=== PATIENT | female | born 1930 | race Hispanic/Latino ===

== ENCOUNTER 2017-07-01 10:34 | Outpatient (CLI) | payer MEDICARE, OTHER ==
--- NOTE | 2017-07-01 12:09 | RAD ---
TWO VIEWS LUMBAR SPINE: Technique: Lateral, flexion and extension views of the lumbar spine obtained. FINDINGS: Atherosclerotic calcification of the abdominal aorta is seen. There is disc space height loss at L2-3 and minimally at L3-4 and L4-5. Disc space irregularity is se en in the inferior endplate of L4 and superior endplate of L5 as well as the inferior endplate of L5. Anterior osteophytes seen involving the L2, L3, L4, and L5 levels. Atherosclerotic calcification of the abdominal aorta is seen. No evidence of jeet or retrolisthesis seen on flexion or extension views. IMPRESSION: Changes of spondylosis. No evidence of jeet or retrolisthesis seen. No evidence of significant abno rmality seen otherwise. POS: [facility]
== END 2017-07-01 10:35 | disposition home or self-care (01) ==
LOC: RAD 10:34
PROVIDERS: ATTEND Nurse Practitioner Family
DX: M43.17 Spondylolisthesis, lumbosacral region (principal); M54.16 Radiculopathy, lumbar region
CPT/HCPCS: 72100

== ENCOUNTER 2017-08-29 09:03 | Outpatient (CLI) | payer MEDICARE, OTHER ==
--- NOTE | 2017-08-29 13:34 | EKG ---
Test Reason : Blood Pressure : / mmHG Vent. Rate : 068 BPM Atrial Rate : 068 BPM P-R Int : 164 ms QRS Dur : 086 ms QT Int : 386 ms P-R-T Axes : 075 004 014 degrees QTc Int : 410 ms Normal sinus rhythm Inferior infarct , age undetermined cannot be excluded Abnormal ECG Confirmed by ASHLEY ALATORRE ([id number]) on 08/29/2017 1:34:27 PM Referred By: [facility]AO Confirmed By:ASHLEY ALATORRE
== END 2017-08-29 09:04 | disposition home or self-care (01) ==
LOC: LABBT 09:03
PROVIDERS: ATTEND Neurological Surgery
DX: Z01.810 Encounter for preprocedural cardiovascular examination (principal); M54.16 Radiculopathy, lumbar region
CPT/HCPCS: 93005; 93010

== ENCOUNTER 2017-09-03 05:58 | Day surgery (SDC) | payer MEDICARE, OTHER ==
[2017-08-29 09:51] VITALS: BMI 25.2
[2017-09-03] MEDS ORDERED: Bupivacaine HCl 0.5%/Epinephrine 1:200,000/PF 30 ml Vial ONE (07:41)
[2017-09-03] MEDS ORDERED: Thrombin 5000 UNITS/5 ML VIAL ONE (07:41)
[2017-09-03] MEDS ORDERED: Fentanyl 100 MCG/2 ML VIAL ONE ×2 (07:45→10:14)
[2017-09-03 08:05] LABS: Hemoglobin 13.8 g/dL (12.0-16.0); Mean Corpuscular HGB CONC 33.7 g/dL (32.0-36.0); Mean Corpuscular Hemoglobin 32.1 pg (27.0-31.0); Mean Corpuscular Volume 95.3 fL (78.0-98.0); Mean Platelet Volume 7.3 fL (7.4-10.4); Platelet Count 246 thou/uL (130-400); Red Blood Cell (RBC) Count 4.31 mill/uL (4.20-5.40); White Blood Cell (WBC) Count 7.6 thou/uL (4.8-10.8)
[2017-09-03 08:23] LABS: Anion Gap 11 mmol/L (10-20); BUN (Urea Nitrogen) 19 mg/dL (9.8-20.1); Calc. Creatinine Clearance 52 mL/min (70-130); Calcium 9.7 mg/dL (7.8-10.44); Carbon Dioxide 27 mmol/L (23-31); Chloride 104 mmol/L (98-107); Estimated GFR-MDRD 72; Glucose 114 mg/dL (83-110); Potassium 4.3 mmol/L (3.5-5.1); Sodium 138 mmol/L (136-145)
[2017-09-03] MEDS ORDERED: CEFAZOLIN/Water 2 GM/20 ML SYRINGE ONE ×2 (08:23→14:27)
[2017-09-03] MEDS ORDERED: PROPOFOL 200 MG/20 ML VIAL ONE (10:21)
[2017-09-03] MEDS ORDERED: Lidocaine 1% PF 5 ML VIAL ONE (10:21)
[2017-09-03] MEDS ORDERED: Ondansetron HCl/PF 4 MG/2 ML Vial ONE (10:21)
[2017-09-03] MEDS ORDERED: Glycopyrrolate 0.2 MG/ML 5 ML SYRINGE ONE (10:21)
[2017-09-03] MEDS ORDERED: ePHEDrine/0.9% NaCl/PF SYRINGE 50 mg/10 ml ONE (10:21)
[2017-09-03] MEDS ORDERED: PHENYLEPHRINE-NS 100 MCG/ML 10 ML SYRINGE ONE (10:21)
[2017-09-03] MEDS ORDERED: Promethazine HCl 25 MG/ML VIAL ONE (12:05)
[2017-09-03] MEDS ORDERED: Acetaminophen/Codeine 30-300mg Tablet ONE (13:25)
--- NOTE | 2017-09-10 11:28 | OP ---
DATE OF PROCEDURE: 09/10/2017 SURGEON: Jimbo Burroughs M.D. [employer] SPECIALIST: Luis Enrique Mallory PA-C. INDICATION: Pain. DIAGNOSIS: Lumbar radiculopathy. PROCEDURES: Right L4-L5 hemilaminectomy, medial facetectomy, decompression. ANESTHESIA: General. TECHNIQUE: The patient was brought into the operating room and placed under general anesthesia. She was flipped from a supine or prone position on the operating room table. A linear incision was plan jose over the L4-L5 segment. After prepping and draping and after an appropriate operative pause, the incision was created. Soft tissues were swept away from midline on the right. A self-retaining ret ractor was placed. High-speed cutting drill bit as well as 2, 3 and 4-mm Kerrison was used to perfor m a laminectomy along the inferior aspect of L4 and the superior aspect of L5 until the lateral reces ses were decompressed by removing the lamina as well as the medial aspect of the facet joint. The ex iting L4 and descending L5 nerve roots were identified and found to be free from compression. The wo und was then irrigated. Hemostasis was maintained throughout. The wound was then closed in anatomic layers and a pressure dressing was applied. There were no known procedural complications.
== END 2017-09-03 15:38 | disposition home or self-care (01) ==
LOC: SDC 05:58
PROVIDERS: ATTEND Neurological Surgery
PROC: 01NB0ZZ Release Lumbar Nerve, Open Approach (ICD-10-PCS; principal; 2017-09-03)
DX: M54.16 Radiculopathy, lumbar region (principal); E78.00 Pure hypercholesterolemia, unspecified; I10 Essential (primary) hypertension; F41.9 Anxiety disorder, unspecified; M19.90 Unspecified osteoarthritis, unspecified site; Z79.2 Long term (current) use of antibiotics; Z79.82 Long term (current) use of aspirin; Z79.899 Other long term (current) drug therapy; Z88.2 Allergy status to sulfonamides; Z88.8 Allergy status to other drugs, medicaments and biological substances
CPT/HCPCS: 36415; 76001; 80048; 85027; 96374; 96375; 96376; J0670; J2001; J2405; J2550; J2704; J3010

== ENCOUNTER 2018-01-20 03:46 | Emergency (ER) | payer MEDICARE, OTHER ==
[2018-01-20 04:44] LABS: #Eosinphils 0.2 thou/uL (0.0-0.7); #Lymphocytes 1.7 thou/uL (1.20-3.40); #Monocytes 0.5 thou/uL (0.11-0.59); #Neutrophils 3.4 thou/uL (1.40-6.50); %Basophils 0.9 % (0.0-1.0); %Lymphocytes 29.3 % (21.0-51.0); %Monocytes 7.9 % (0.0-10.0); Hemoglobin 13.3 g/dL (12.0-16.0); Mean Corpuscular HGB CONC 33.1 g/dL (32.0-36.0); Mean Corpuscular Volume 93.4 fL (78.0-98.0); Mean Platelet Volume 7.4 fL (7.4-10.4); Platelet Count 271 thou/uL (130-400); RBC Distribution Width 11.4 % (11.5-14.5); Red Blood Cell (RBC) Count 4.31 mill/uL (4.20-5.40); White Blood Cell (WBC) Count 5.8 thou/uL (4.8-10.8)
[2018-01-20 04:56] LABS: ALT (SGPT) 19 U/L (8-55); AST (SGOT) 22 U/L (5-34); Albumin 4.2 g/dL (3.4-4.8); Alkaline Phosphatase 63 U/L (40-150); Anion Gap 11 mmol/L (10-20); BUN (Urea Nitrogen) 20 mg/dL (9.8-20.1); Bilirubin, Total 0.5 mg/dL (0.2-1.2); Calc. Creatinine Clearance 0 mL/min (70-130); Calcium 9.4 mg/dL (7.8-10.44); Carbon Dioxide 27 mmol/L (23-31); Chloride 105 mmol/L (98-107); Estimated GFR-MDRD 68; Glucose 151 mg/dL (83-110); Potassium 3.9 mmol/L (3.5-5.1); Protein, Total 7.2 g/dL (6.0-8.3); Sodium 139 mmol/L (136-145)
[2018-01-20] MEDS ORDERED: Morphine 4 MG/ML VIAL ONE (04:56)
[2018-01-20] MEDS ORDERED: Dexamethasone 10 MG/ML VIAL ONE (04:56)
--- NOTE | 2018-01-20 08:05 | ULT ---
PRELIMINARY REPORT/[facility]/EMERGENTY AFTER-HOURS PROCEDURE US Right Duplex Lower Extremity Veins, Limited EXAM DATE/TIME: 01/20/2018 5:26 AM CLINICAL HISTORY: 87 years old, female; Pain; Leg, lower; Right TECHNIQUE: Real-time Duplex ultrasound of the Right Lower Extremity with 2-D ta scale, color Doppler flow and spectral waveform analysis. Limited exam was focused on the right lower extremity veins. COMPARISON: No relevant prior studies available. FINDINGS: Right deep veins: Unremarkable. The common femoral, femoral and popliteal veins are patent without th rombus. Normal compressibility, augmentation response and Doppler waveforms. Right superficial veins: Unremarkable. Saphenofemoral junction is patent without thrombus. Soft tissues: Unremarkable. IMPRESSION: No acute findings. No evidence of deep vein thrombosis. Thank you for allowing us to participate in the care of your patient. Dictated and Authenticated by: Ramiro Wilhelm MD 01/20/2018 5:54 AM Central Time ([place] & [place]) FINAL REPORT VENOUS DUPLEX SONOGRAM RIGHT LOWER EXTREMITY PERFORMED ON EMERGENCY BASIS: DATE: 01/20/18 TIME: 0530 HOURS HISTORY: Right leg pain and edema. FINDINGS/IMPRESSION: Findings agree with the preliminary report by Yamileth. No sonographic evidence of deep venous thrombosis within the right lower extremity. POS: [facility]
== END 2018-01-20 06:23 | disposition home or self-care (01) ==
LOC: ERS 03:46
DX: M54.31 Sciatica, right side (principal); M79.671 Pain in right foot; I10 Essential (primary) hypertension; E78.00 Pure hypercholesterolemia, unspecified
CPT/HCPCS: 36415; 80053; 85025; 85379; 96372; J1100; J2270

== ENCOUNTER 2018-08-04 11:58 | Outpatient (CLI) | payer MEDICARE, OTHER ==
--- NOTE | 2018-08-04 13:35 | MRI ---
MRI LUMBAR SPINE: HISTORY: Back pain. TECHNIQUE: Multiplanar, multisequence, noncontrast enhanced MR images of the lumbar spine. FINDINGS: T12-L1: Minimal facet hypertrophy is seen. The central canal and neural foramen are patent. L1-L2: There is mild facet hypertrophy. The central canal and neural foramen are patent. L2-L3: Disc desiccation is seen. There is a broad-based central disc protrusion, resulting in a mode rate degree of central and lateral recess stenosis. Bilateral facet and ligamentum flavum hypertrophy are seen. The left neural foramen is moderately narrowed. The right is patent. L3-L4: There is some disc desiccation seen. There is a broad-based disc bulge with bilateral facet and ligamentum flavum hypertrophy, resulting in a moderate degree of central and lateral recess stenosis. There is moderate bilateral neural foraminal narrowing seen. L4-L5: Disc desiccation is seen. There is a broad-based disc bulge with bilateral facet and ligamen todd flavum hypertrophy, resulting in mild to moderate central and lateral recess stenosis. There is severe right L4-L5 neural foraminal narrowing, concerning for compression of the right L4 nerve ro ot. This has significantly increased since the previous exam. L5-S1: Disc desiccation is seen. There is a mild broad-based disc bulge. Moderate facet hypertroph y is seen. The central canal is patent. IMPRESSION: Severe right L4-L5 neural foraminal narrowing with marked compression of the exiting right L4 nerve r oot. Findings discussed with Dr. Ben Burroughs at 1:34 PM on 08/04/2018. CODE CR Transcribed Date/Time: 08/04/2018 2:24 PM
== END 2018-08-04 11:59 | disposition home or self-care (01) ==
LOC: BICMRI 11:58
PROVIDERS: ATTEND Neurological Surgery
DX: M54.16 Radiculopathy, lumbar region (principal); M48.061 Spinal stenosis, lumbar region without neurogenic claudication
CPT/HCPCS: 72148

== ENCOUNTER 2018-11-14 15:52 | Emergency (ER) | payer MEDICARE, OTHER ==
[2018-11-14] MEDS ORDERED: Adacel (T-DAP) 0.5 ML SYRINGE ONE (16:23)
--- NOTE | 2018-11-14 16:46 | RAD ---
LEFT THUMB THREE VIEWS: 11/14/18 HISTORY: Thumb laceration. There are arthritic changes of the thumb. There is no signs of any acute fracture. IMPRESSION: No acute injury. Moderate arthritic change. POS: [facility]
[2018-11-14] MEDS ORDERED: Lidocaine 1% (PF) 30 ML VIAL ONE (16:50)
[2018-11-14] MEDS ORDERED: Ondansetron ODT 4 MG TAB ONE (17:00)
== END 2018-11-14 17:15 | disposition home or self-care (01) ==
LOC: ERS 15:52
DX: S61.012A Laceration without foreign body of left thumb without damage to nail, initial encounter (principal); I10 Essential (primary) hypertension; E78.00 Pure hypercholesterolemia, unspecified; W45.8XXA Other foreign body or object entering through skin, initial encounter
CPT/HCPCS: 12002; 90471; 90715; J2001; Q0162

== ENCOUNTER 2019-12-26 18:37 | Emergency (ER) | payer MEDICARE, OTHER ==
--- NOTE | 2019-12-26 19:24 | RAD ---
XR Chest 1 View Portable HISTORY: Chest pain COMPARISON: 07/16/2011 FINDINGS: The heart size is normal. The lungs are well expanded without focal areas of consolidation, pneumothorax or pleural effusions. IMPRESSION: No radiographic evidence of acute cardiopulmonary process.
[2019-12-26 19:28] LABS: #Basophils 0.1 thou/uL (0.0-0.2); #Eosinphils 0.3 thou/uL (0.0-0.7); #Lymphocytes 2.6 thou/uL (1.20-3.40); #Monocytes 0.7 thou/uL (0.11-0.59); #Neutrophils 3.9 thou/uL (1.40-6.50); %Basophils 1.3 % (0.0-1.0); %Eosinophils 3.9 % (0.0-10.0); %Monocytes 9.3 % (0.0-10.0); %Neutrophils 51.5 % (42.0-75.0); Mean Corpuscular HGB CONC 33.6 g/dL (32.0-36.0); Mean Corpuscular Hemoglobin 31.8 pg (27.0-31.0); Mean Corpuscular Volume 94.7 fL (78.0-98.0); Mean Platelet Volume 7.7 fL (7.4-10.4); Platelet Count 252 thou/uL (130-400); RBC Distribution Width 11.5 % (11.5-14.5); Red Blood Cell (RBC) Count 4.08 mill/uL (4.20-5.40); White Blood Cell (WBC) Count 7.6 thou/uL (4.8-10.8)
[2019-12-26 19:50] LABS: ALT (SGPT) 19 U/L (8-55); AST (SGOT) 19 U/L (5-34); Alkaline Phosphatase 70 U/L (40-110); Anion Gap 11 mmol/L (10-20); BUN (Urea Nitrogen) 24 mg/dL (9.8-20.1); Bilirubin, Total 0.4 mg/dL (0.2-1.2); Calc. Creatinine Clearance 0 mL/min (70-130); Carbon Dioxide 33 mmol/L (23-31); Chloride 102 mmol/L (98-107); Estimated GFR-MDRD 52; Globulin 2.9 g/dL (2.4-3.5); Glucose 109 mg/dL (83-110); Protein, Total 6.9 g/dL (6.0-8.3); Sodium 142 mmol/L (136-145)
[2019-12-26] MEDS ORDERED: Lorazepam 1 MG TAB ONE (20:31)
[2019-12-26 22:28] LABS: Troponin I Less than 0.010 ng/mL (< 0.028)
== END 2019-12-26 23:09 | disposition home or self-care (01) ==
LOC: ERS 18:37
DX: R07.9 Chest pain, unspecified (principal); I10 Essential (primary) hypertension; E78.00 Pure hypercholesterolemia, unspecified; F32.9 Major depressive disorder, single episode, unspecified; F41.9 Anxiety disorder, unspecified; K21.9 Gastro-esophageal reflux disease without esophagitis; Z79.899 Other long term (current) drug therapy; Z79.82 Long term (current) use of aspirin
CPT/HCPCS: 36415; 71045; 80053; 84484; 85025; 85379; 93005